=== PATIENT | male | born 1980 | race Caucasian/White ===

== ENCOUNTER 2016-11-26 13:31 | Emergency (ER) | payer OTHER ==
[~2016-11-26] VITALS: Ht 182.9 cm; Wt 102.4 kg
[~2016-11-26 13:31] MED LIST: COLCRYS0.6 MG PO; INDOCIN50 MG PO; MOBIC7.5 MG PO; TYLENOL WITH C1 EACH PO; ULTRAM50 MG PO
[2016-11-26] MEDS ORDERED: ULTRAM50 MG PO (15:10)
[2016-11-26 15:32] VITALS: BP 134/103
== END 2016-11-26 15:33 | disposition home or self-care (01) ==
LOC: EME 13:31
DX: S63.502A Unspecified sprain of left wrist, initial encounter (principal); X58.XXXA Exposure to other specified factors, initial encounter; F17.200 Nicotine dependence, unspecified, uncomplicated
CPT/HCPCS: 73110; 99281; 99284